=== PATIENT | female | born 1950 | race Caucasian/White ===

== ENCOUNTER 2025-01-08 10:43 | Emergency (ER) | payer MEDICARE, OTHER, SELFPAY ==
[2025-01-08 10:45] VITALS: BP 131/86
--- NOTE | 2025-01-08 11:36 | ED.GENMED ---
History of Present Illness
General
Chief Complaint: Musculo-Skeletal Complaint
Time Seen by Provider: 01/08/25 10:53
History of Present Illness
History of Present Illness:
74-year-old female presents the emergency department for evaluation of right knee pain, was walking up the steps yesterday when she planted the right leg and twisted, feeling a pop in the knee. She cannot bear weight today. Denies any pain when
she is not weightbearing
Review of Systems
Review of Systems
Allergies reviewed?: Yes
All Other Systems: ROS reviewed and negative except as documented in HPI and ROS
Phy Exam
Physical Exam
Physical Exam:
GEN: Well appearing, NAD, WDWN
HEENT: Oral mucosa moist, no scleral icterus
Cardiac: Regular rate
Lung: No respiratory distress, no tachypnea
MSK: No gross deformity or injuries. Range of motion of the right knee is normal with no crepitus, no palpable effusion, no laxity with anterior or posterior drawer
Skin: Good color, no pallor or jaundice, no rashes
Neuro: AO x3, moves all extremities freely
Psych: Calm, cooperative
Course
Orders/Labs/Results
Orders:
Orders
01/08/25 10:44
Knee, Right 4 or More Views [CR Knee- Right 4 Or More View*] Urgent
Comment:
Reason For Exam: pain
Vital Signs
Initial and Last Documented VS:
Initial Vital Signs
Temp Pulse Resp BP Pulse Ox
98.3 F 112 16 131/86 96
01/08/25 10:45 01/08/25 10:45 01/08/25 10:45 01/08/25 10:45 01/08/25 10:45
Last Documented Vital Signs
Temp Pulse Resp BP Pulse Ox
98.3 F 112 16 131/86 96
01/08/25 10:45 01/08/25 10:45 01/08/25 10:45 01/08/25 10:45 01/08/25 10:45
MDM/Problems Addressed
MDM/Problems Addressed:
Likely meniscal/cartilaginous injury, knee immobilizer provided, will start NSAIDs and refer to Ortho for follow-up
*Critical Care Note
Total Time (30-74mins, 75-104mins- exclusive of procedures): Not Applicable
ED Attending Note
-
Portions of this chart may have been created with voice recognition software.� Occasional wrong word or��sound alike� substitutions may have occurred due to the inherent limitations of voice recognition software.
Discharge Plan
Departure
Patient Disposition: Home (Routine Discharge)
Date of Disposition: 01/08/25
Time of Disposition: 11:37
Patient with high blood pressure during this ER visit?: No
Discharge Problem:
Right knee sprain
Instructions: Knee Sprain (DC)
Prescriptions:
New
celecoxib [Celebrex] 200 mg capsule
200 mg PO BID Qty: 20 0RF
Referrals:
NONE,* [Family Provider] -
Michelet Parekh MD [Active] -
Activity Restrictions/Additional Instructions:
Use the knee immobilizer as needed to assist with ambulation
Crutches and/or walker as needed
Follow up with Orthopedics if pain is not improving
Interventions
Interventions:
*Risk Screen - Suicide Last Done: 01/08/25 11:34
*General Assessment Last Done: 01/08/25 11:34
*Neglect/Abuse Screening Last Done: 01/08/25 11:34
*ED- Fall Risk Assessment Last Done: 01/08/25 11:34
*ED COVID-19 Vaccine History Last Done: 01/08/25 11:34
*Nursing Disposition Last Done: 01/08/25 12:02
ED-Musculoskeletal Assessment Last Done: 01/08/25 11:34
Discharge Date and Time
Discharge Date/Time: 01/08/25 12:03
Print Language: [place]
== END 2025-01-08 12:03 | disposition home or self-care (01) ==
LOC: EMR 10:43
PROVIDERS: EMERGENCY PHYSICIAN Emergency Medicine
DX: S83.91XA Sprain of unspecified site of right knee, initial encounter (principal); X50.1XXA Overexertion from prolonged static or awkward postures, initial encounter
CPT/HCPCS: 29505; 99283; 73564